=== PATIENT | male | born 1950 | race Caucasian/White ===

== ENCOUNTER → 2016-10-04 | Outpatient (CLI) | payer OTHER | LOC: M RAD 14:06 | PROVIDERS: ATTEND Otolaryngology | DX: J30.9 Allergic rhinitis, unspecified (principal); J32.4 Chronic pansinusitis; J34.2 Deviated nasal septum; M27.40 Unspecified cyst of jaw ==

== ENCOUNTER 2017-02-23 07:28 | Day surgery (SDC) | payer OTHER ==
[~2017-02-23] VITALS: Ht 185.4 cm; Wt 108.9 kg
[~2017-02-23 07:28] MED LIST: ACETAMINOPHEN 325 MG TAB PO PRN; AMLO5TAB2 PO; ASPI1TAB15 PO; CARV25TA PO; INCR1INH INH; LISINOP/HCTZ PO; OFLOXACIN 0.3 % (OCUFLOX) OPTH SOL 5ML OS ONE; PHENYLEPHRINE 2.5% OPHTH SOL 2ML OS ONE; PROPARACAINE 0.5% OPHTH SOL 15ML OS ONE; PROPARACAINE 0.5% OPHTH SOL 15ML OS PRN; ROSU10TA2 PO; TROPICAMIDE 1% OPHTH SOLN 2ML OS ONE
[2017-02-23] MEDS ORDERED: ALBUTEROL SULFATE 2.5 MG/0.5 ML INH NEB SOLN As Ordered ONE (08:46)
[2017-02-23] MEDS ORDERED: LIDOCAINE 0.75%/EPINEPHRINE 0.025% IN BSS 1ML SYR INTRACAMERAL (OR ONLY) As Ordered ONE (09:00)
[2017-02-23] MEDS ORDERED: ACETYLCHOLINE OPHTH SOLN 1% 2ML (MIOCHOL-E) As Ordered ONE (09:00)
[2017-02-23] MEDS ORDERED: BALANCED SALT IRRIGATION SOLUTION 500ML BAG (FOR OR EYE MACHINE) As Ordered ONE (09:00)
[2017-02-23] MEDS ORDERED: POVIDONE-IODINE 5% OPHTH PREP SOL 30ML As Ordered ONE (09:00)
[2017-02-23] MEDS ORDERED: CEFUROXIME 1MG/0.1ML INTRACAMERAL INJ As Ordered ONE (09:00)
[2017-02-23] MEDS ORDERED: ALBUTEROL SULFATE 2.5 MG/0.5 ML INH NEB SOLN INH ONE (09:00)
[2017-02-23] MEDS ORDERED: DUOVISC (0.50ML VISCOAT/0.55ML PROVISC) OPHTH KIT As Ordered ONE (09:01)
[2017-02-23] MEDS ORDERED: MIDAZOLAM INJ 2 MG/2 ML VIAL (J2250) As Ordered ONE (09:04)
[2017-02-23] MEDS ORDERED: fentaNYL 100 MCG/2 ML INJECTION (J3010) As Ordered ONE (09:04)
[2017-02-23 10:10] VITALS: BP 123/73
[2017-02-23] MEDS ORDERED: TRIMETHOBENZAMIDE 300 MG CAP PO PRN (10:30)
--- NOTE | 2017-02-25 10:50 | RO ---
DATE OF PROCEDURE: 02/23/2017 PREOPERATIVE DIAGNOSIS: Visually significant nuclear sclerotic cataract left eye. POSTOPERATIVE DIAGNOSIS: Visually significant nuclear sclerotic cataract left eye. PROCEDURE: Cataract extraction with use of phacoemulsification and placement of intraocular lens, AU00T0, 22.5, left eye. SURGEON: Noam Dominguez DO COIL TESTER: ANESTHESIA: Local with monitored anesthesia care (MAC). COMPLICATIONS: None. POSTOPERATIVE CONDITION: Stable. INDICATION FOR SURGERY: Blurred vision left eye affecting patient's activities of daily living. DESCRIPTION OF PROCEDURE: The patient was seen in the preoperative area and properly identified. The correct operative eye was identified and marked. Attention was turned to that eye. The patient received topical antibiotics in the preoperative area. The patient then received topical dilating drops consisting of tropicamide and phenylephrine. The patient was then transferred to the operating room. The correct side was re-identified. The patient received topical anesthetics and antibiotics on the surface of the eye. The eye was prepped and draped in a sterile fashion. The upper and lower eyelids were isolated with Tegaderm tape, and the lids were held open with an adjustable speculum. Using a sideport blade, a paracentesis incision was made. Intraocular preservative-free lidocaine was then injected into the anterior chamber. Viscoelastic was then injected into the anterior chamber through the paracentesis. Using a 2.4 mm sharp-tipped keratome, the anterior chamber was entered via a temporal clear corneal incision. A continuous curvilinear capsulorrhexis was created with the aid of a 26-gauge cystotome and Utrata forceps. Hydrodissection was performed with balanced salt solution (BSS) on a blunt cannula until the nucleus was freely mobile. The crystalline lens was phacoemulsified and aspirated. Additional cohesive viscoelastic was placed into the capsular bag to deepen it. A AU00T0, 22.5 lens was placed into the capsular bag and confirmed by visualizing the continuous curvilinear capsulorrhexis. Additional irrigation and aspiration was used to remove cortical material and remaining viscoelastic. The clear corneal incision was hydrated with BSS on a blunt cannula. The lens was well positioned. The incisions were then tested for leaks and found to be negative. The eye was then palpated for appropriate pressure and adjusted accordingly with BSS. The eyelid speculum was carefully removed. A shield was placed. The patient tolerated the procedure well and was discharged to the recovery unit in a stable condition. MTDD
== END 2017-02-23 10:15 | disposition home or self-care (01) ==
LOC: M SDC 07:28
PROVIDERS: ATTEND Ophthalmology
DX: H25.12 Age-related nuclear cataract, left eye (principal); Z98.61 Coronary angioplasty status; Z79.82 Long term (current) use of aspirin; I10 Essential (primary) hypertension; E78.5 Hyperlipidemia, unspecified; J44.9 Chronic obstructive pulmonary disease, unspecified; Z79.899 Other long term (current) drug therapy
CPT/HCPCS: 66984; J2250; J3010; V2632

== ENCOUNTER 2017-07-19 09:42 | Day surgery (SDC) | payer OTHER ==
[2017-07-19] MEDS ORDERED: ROCURONIUM BROMIDE 50 MG/5 ML VIAL As Ordered (10:59)
[2017-07-19] MEDS ORDERED: PROPOFOL 200 MG/20 ML VIAL As Ordered (10:59)
[2017-07-19] MEDS ORDERED: LIDOCAINE 2% INJ 100 MG/5 ML SDV (FOR ANES.) As Ordered (10:59)
[2017-07-19] MEDS ORDERED: fentaNYL 100 MCG/2 ML INJECTION (J3010) As Ordered (11:00)
[2017-07-19] MEDS ORDERED: MIDAZOLAM INJ 2 MG/2 ML VIAL (J2250) As Ordered (11:00)
[2017-07-19] MEDS: LR 1,000 ML IV (11:00)
[2017-07-19] MEDS: CARVedilol 12.5 MG TAB PO (11:02)
[2017-07-19] MEDS ORDERED: ePHEDrine SULFATE 25 MG/5 ML(5MG/ML) SYRINGE As Ordered (11:59)
[2017-07-19] MEDS ORDERED: PHENYLephrine HCL 500 MCG/5 ML (100MCG/ML) SYRINGE (J2370) As Ordered ×2 (12:00→12:22)
[2017-07-19] MEDS ORDERED: ONDANSETRON 4MG/2ML VIAL (J2405) As Ordered (12:02)
[2017-07-19] MEDS ORDERED: dexameTHASONE 4 MG/ML 1ML VIAL (J1100) As Ordered ×2 (12:02)
[2017-07-19] MEDS: LIDOCAINE W/EPINEPHRINE 1% 20ML VIAL As Ordered (12:15)
[2017-07-19] MEDS: EPINEPHrine 1MG/ML INJ 30ML MD-VIAL As Ordered (12:15)
[2017-07-19] MEDS ORDERED: GLYCOPYRROLATE INJ 0.2 MG/ML 2 ML VIAL As Ordered ×2 (13:06)
[2017-07-19] MEDS ORDERED: LR 1,000 ML IV ×2 (13:45)
[2017-07-19] MEDS ORDERED: METOCLOPRAMIDE INJ 10MG/2ML VIAL (J2765) IV (13:45)
[2017-07-19] MEDS ORDERED: MEPERIDINE INJ 25 MG/ML VIAL (J2175) IV (13:45)
[2017-07-19] MEDS ORDERED: ONDANSETRON 4MG/2ML VIAL (J2405) IV (13:45)
[2017-07-19] MEDS ORDERED: fentaNYL 100 MCG/2 ML INJECTION (J3010) IV (13:45)
[2017-07-19] MEDS ORDERED: ACETAMINOPH W/CODEINE #3 TAB UD PO (13:45)
[2017-07-19] MEDS: PERCOCET 5MG/325MG TAB PO ×2 (13:55→14:14)
== END 2017-07-19 15:25 | disposition home or self-care (01) ==
LOC: M SDC 09:42
DX: J34.2 Deviated nasal septum (principal); J31.0 Chronic rhinitis; I10 Essential (primary) hypertension; E78.00 Pure hypercholesterolemia, unspecified; J44.9 Chronic obstructive pulmonary disease, unspecified; Q24.9 Congenital malformation of heart, unspecified; I42.0 Dilated cardiomyopathy; Z79.899 Other long term (current) drug therapy; Z79.82 Long term (current) use of aspirin; Z95.5 Presence of coronary angioplasty implant and graft; Z96.1 Presence of intraocular lens; Z87.891 Personal history of nicotine dependence; Z98.61 Coronary angioplasty status
CPT/HCPCS: 30520

== ENCOUNTER → 2018-08-01 | Outpatient (CLI) | payer OTHER ==
[~2018-08-01] MED LIST changes: -ACETAMINOPHEN 325 MG TAB PO PRN; -AMLO5TAB2 PO; +AMLO5TAB6 PO; +MULT1TAB10 PO; -OFLOXACIN 0.3 % (OCUFLOX) OPTH SOL 5ML OS ONE; -PHENYLEPHRINE 2.5% OPHTH SOL 2ML OS ONE; -PROPARACAINE 0.5% OPHTH SOL 15ML OS ONE; -PROPARACAINE 0.5% OPHTH SOL 15ML OS PRN; -ROSU10TA2 PO; +ROSU10TA5 PO; +SUPETAB25 PO; -TROPICAMIDE 1% OPHTH SOLN 2ML OS ONE
--- NOTE | 2018-08-01 11:52 | REP ---
LUMBAR SPINE, FIVE VIEWS: HISTORY: Back pain. There is no acute fracture or subluxation. The lumbar intervertebral discs are decreased in height. Vacuum phenomenon is present at the L5-S1 level. These findings are consistent with disc degeneration. Osteophytes are present on L1, L2, L5, and S1. There is narrowing of the right L4-5 and L5-S1 facet joints and left L3-4 through L5-S1 facet joints. IMPRESSION: Degenerative change as described above. Electronically Signed by Finesse Berumen MD 08/01/2018 11:59 A
== END ==
LOC: M WUC 11:02
PROVIDERS: ATTEND Physician Assistant
DX: M54.5 Low back pain (principal)

== ENCOUNTER → 2018-09-17 | Outpatient (CLI) | payer MEDICARE ==
--- NOTE | 2018-09-17 13:02 | REP ---
MR LUMBAR SPINE WITHOUT CONTRAST: HISTORY: Spondylosis. Decreased signal intensity on T2-weighted images is present in the lumbar intervertebral discs. The discs are decreased in height. These findings are consistent with disc degeneration. A disc bulge is present at the T12-L1 level. There is minimal effacement of the thecal sac without spinal cord compression. The T12 neural foramina are patent on sagittal images. A disc bulge is present at the L1-2 level. There is minimal compression of the thecal sac. There is hypertrophy of the posterior articulating facets. The L1 nerves exit the neural foramina without compression. A diffuse disc bulge and small left paracentral disc protrusion are present at the L2-3 level. There is an increase in the amount of epidural fat. There is hypertrophy of the ligamenta flava and posterior articulating facets. These findings produce moderate central canal stenosis. The L2 nerves exit the neural foramina without compression. A diffuse disc bulge is present at the L3-4 level. There is an increase in the amount of epidural fat. There is hypertrophy of the ligamenta flava and posterior articulating facets. There is moderate compression of the thecal sac. The L3 nerves exit the neural foramina without compression. A diffuse disc bulge is present at the L4-5 level. There is an increase in the amount of epidural fat. There is hypertrophy of the ligamenta flava and posterior articulating facets. There is minimal compression the thecal sac. The L4 nerves exit the neural foramina without compression. A diffuse disc bulge is present at the L5-S1 level. There is minimal compression of the thecal sac. There is hypertrophy of the posterior articulating facets. The L5 nerves exit the neural foramina without compression. The conus medullaris is normal in appearance terminating at the level of the T12-L1 intervertebral disc. Increased signal intensity on T2-weighted images is present in the endplates of the L5 and S1 vertebral bodies. This represents degenerative change. IMPRESSION: 1. Diffuse disc bulges at the L1-2 and L5-S1 levels with minimal thecal sac compression. 2. Moderate central canal stenosis at the L2-3 level secondary to disc bulge, disc protrusion, ligamentous, and facet hypertrophy and epidural lipomatosis. 3. Diffuse disc bulge, ligamentous and facet hypertrophy and epidural lipomatosis with moderate thecal sac compression. 4. Diffuse disc bulge, ligamentous and facet hypertrophy and epidural lipomatosis at the L4-5 level with minimal thecal sac compression. Electronically Signed by Finesse Berumen MD 09/17/2018 01:21 P
== END ==
LOC: M RAD 11:17
PROVIDERS: ATTEND Orthopaedic Surgery
DX: M47.26 Other spondylosis with radiculopathy, lumbar region (principal); M51.26 Other intervertebral disc displacement, lumbar region; M48.061 Spinal stenosis, lumbar region without neurogenic claudication

== ENCOUNTER → 2019-04-16 | Outpatient (CLI) | payer MEDICARE ==
[~2019-04-16] MED LIST changes: -ROSU10TA5 PO; +ROSU10TA6 PO
[2019-04-16 13:42] LABS: FOLATE > 24.0 NG/ML (>5.4); FREE T4 0.89 NG/DL (0.76-1.46); TOTAL PROTEIN 6.7 GM/DL (6.4-8.2); VITAMIN B12 LEVEL 417 PG/ML (247-911)
[2019-04-16 14:20] LABS: HEMOGLOBIN A1c 6.3 %
== END ==
LOC: M WUC 09:15
PROVIDERS: ATTEND Psychiatry & Neurology Neurology
DX: E11.9 Type 2 diabetes mellitus without complications (principal); E07.9 Disorder of thyroid, unspecified

== ENCOUNTER → 2019-07-04 | Outpatient (REF) | payer MEDICARE ==
[2019-07-04 11:59] LABS: PLATELET COUNT, AUTOMATED 237 10^3/uL (150-450)
[2019-07-04 12:10] LABS: INR 1.01
[2019-07-04 12:11] LABS: PARTIAL THROMBOPLASTIN TIME 30.8 SECONDS (25.0-38.4)
[2019-07-04 12:23] LABS: COLLAGEN EPINEPHRINE 124 SECONDS (74-162)
== END ==
LOC: M LABDRAW1 11:21
PROVIDERS: ATTEND Physician Assistant
DX: D69.1 Qualitative platelet defects (principal); Z01.812 Encounter for preprocedural laboratory examination; M47.27 Other spondylosis with radiculopathy, lumbosacral region

== ENCOUNTER → 2019-09-24 | Outpatient (CLI) | payer MEDICARE | LOC: M LABSMTC 09:25 | PROVIDERS: ATTEND Physical Medicine & Rehabilitation | DX: Z03.818 Encounter for observation for suspected exposure to other biological agents ruled out (principal) ==

== ENCOUNTER → 2019-12-25 | Outpatient (CLI) | payer MEDICARE ==
[~2019-12-25] MED LIST changes: +AMLO1TAB24 PO; -AMLO5TAB6 PO; +ASPI-546 PO; -ASPI1TAB15 PO
== END ==
LOC: M LABSMTC 12:29
PROVIDERS: ATTEND Physical Medicine & Rehabilitation
DX: Z11.59 Encounter for screening for other viral diseases (principal)

== ENCOUNTER → 2020-01-28 | Outpatient (CLI) | payer MEDICARE | LOC: M RAD 16:03 | PROVIDERS: ATTEND Physician Assistant | DX: Z53.9 Procedure and treatment not carried out, unspecified reason (principal); M47.27 Other spondylosis with radiculopathy, lumbosacral region ==

== ENCOUNTER → 2020-04-02 | Outpatient (CLI) | payer MEDICARE ==
[~2020-04-02] MED LIST changes: +DULO1CAP4 PO; +LIPI20TA PO; +POTA10TA16 PO; +ROPI0.253 PO; +TORS10TA3 PO; +VENTAER INH
== END ==
LOC: M LABSMTC 09:35
PROVIDERS: ATTEND Physical Medicine & Rehabilitation
DX: Z53.9 Procedure and treatment not carried out, unspecified reason (principal)

== ENCOUNTER → 2020-04-02 | Outpatient (CLI) | payer MEDICARE | LOC: M LABSMTC 15:11 | PROVIDERS: ATTEND Physical Medicine & Rehabilitation | DX: Z20.828 Contact with and (suspected) exposure to other viral communicable diseases (principal) ==

== ENCOUNTER → 2020-04-07 | Outpatient (CLI) | payer MEDICARE ==
--- NOTE | 2020-04-07 11:50 | REPVR ---
PROCEDURE INFORMATION: Exam: MR Lumbar Spine Without Contrast. Exam date and time: 04/07/2020 11:05 AM Age: 69 years old Clinical indication: Pain; Lumbago with sciatica; Bilateral; Additional info: Spinal stenosis sedation mri TECHNIQUE: Imaging protocol: Multiplanar magnetic resonance images of the lumbar spine without intravenous contrast. COMPARISON: MRI-Spine, L.S. without con 09/17/2018 12:12 PM FINDINGS: Vertebrae: There is no fracture or listhesis. Normal vertebral body alignment and heights are preserved. There is severe intervertebral disc space loss at L5/S1. Spinal cord: Normal signal. No cord compression. L1-L2: There is shallow disc bulging. There is mild facet and ligamentous hypertrophy. There is mild left neural foraminal narrowing. L2-L3: There is diffuse disc bulging with a large left paracentral/subarticular protrusion/superior extrusion. This compresses the thecal sac and effaces the left lateral recess, with potential compromise of both the exiting L2 nerve root as well as the left L3 nerve root within the lateral recess. There is moderate to severe facet and ligamentous hypertrophy. Trace fluid is noted within the facet joints. There is severe canal stenosis. There is mild bilateral neural foraminal narrowing. L3-L4: There is shallow disc bulging. There is moderate facet hypertrophy. There is mild canal stenosis. There is mild right neural foraminal narrowing. L4-L5: There is diffuse disc bulging. There is mild facet hypertrophy. There is mild canal stenosis, with a residual diameter of 10 mm. There is mild bilateral neural foraminal narrowing. L5-S1: There is shallow disc bulging. There is mild facet hypertrophy. The spinal canal and neural foramina are patent. Soft tissues: Unremarkable. IMPRESSION: Degenerative disc disease and spondylosis. At L2/3, left paracentral/subarticular protrusion/superior extrusion results in potential compromise of both the left L2 and L3 nerve roots. Electronically signed by: Sosa Parr On 04/07/2020 11:50:07 AM
== END ==
LOC: M RAD 10:14
PROVIDERS: ATTEND Physical Medicine & Rehabilitation
DX: M48.061 Spinal stenosis, lumbar region without neurogenic claudication (principal); M51.26 Other intervertebral disc displacement, lumbar region; M51.27 Other intervertebral disc displacement, lumbosacral region

== ENCOUNTER → 2021-01-06 | Outpatient (CLI) | payer MEDICARE ==
[~2021-01-06] MED LIST changes: +LISI20TA20 OR; +MULT-90 PO; +SUPETAB44 PO
== END ==
LOC: M LABSMTC 10:47
PROVIDERS: ATTEND Anesthesiology
DX: Z01.812 Encounter for preprocedural laboratory examination (principal); Z20.822 Contact with and (suspected) exposure to COVID-19

== ENCOUNTER 2021-01-08 08:42 | Day surgery (SDC) | payer MEDICARE ==
[~2021-01-08] VITALS: Ht 182.9 cm; Wt 114.9 kg
[~2021-01-08 08:42] MED LIST changes: +BSS IRR 500ML/OMIDRIA 4ML IRR BAG (OR ONLY) As Ordered ONE; +DUOVISC (0.50ML VISCOAT/0.85ML PROVISC) OPHTH KIT As Ordered ONE; +LIDOCAINE 1% SDV 5ML VIAL As Ordered ONE; +MOXIFLOXACIN 0.8MG 0.8ML INTRAOCULAR SYRINGE As Ordered ONE; +PROPARACAINE 0.5% OPHTH SOL 15ML OD ONE
[2021-01-08] MEDS: OFLOXACIN 0.3 % (OCUFLOX) OPTH SOL 5ML OD SCH ×3 (09:28→09:41)
[2021-01-08] MEDS: PHENYLEPHRINE 2.5% OPHTH SOL 2ML OD SCH ×3 (09:28→09:41)
[2021-01-08] MEDS: TROPICAMIDE 1% OPHTH SOLN 2ML OD SCH ×3 (09:28→09:41)
[2021-01-08] MEDS ORDERED: PHENYLEPHRINE 1.5%/LIDOCAINE 1% INTRAOCULAR 0.8ML SYRINGE As Ordered ONE (10:59)
[2021-01-08] MEDS ORDERED: POVIDONE-IODINE 5% OPHTH PREP SOL 30ML As Ordered ONE (11:00)
[2021-01-08] MEDS ORDERED: fentaNYL 100 MCG/2 ML INJECTION (J3010) As Ordered ONE (11:03)
[2021-01-08] MEDS ORDERED: MIDAZOLAM INJ 2MG/2ML VIAL (J2250 PER 1MG) As Ordered ONE (11:03)
[2021-01-08] MEDS ORDERED: propofoL 200 MG/20 ML VIAL As Ordered ONE (11:03)
[2021-01-08 11:21] VITALS: BP 150/77
--- NOTE | 2021-01-12 15:50 | RO ---
OPERATIVE NOTE DATE OF OPERATION: 01/08/2021 PREOPERATIVE DIAGNOSIS: Mature cataract right eye. POSTOPERATIVE DIAGNOSIS: Mature cataract right eye. PROCEDURE: Phacoemulsification, cataract extraction, implantation intraocular lens right eye. SURGEON: Randell Coles MD ELECTROMAGNET CRANE OPERATOR: COMPLICATIONS: None. ESTIMATED BLOOD LOSS: LENS: [employer] Model SN60AT, power 21.5 diopters, [employer] 6.59 CDE. ANESTHESIA: MAC and topical. INDICATIONS FOR PROCEDURE: The patient presented to the office with decreased vision associated with cataract and this was confirmed with slit lamp. Informed consent was obtained for cataract surgery of the right eye and implant of intraocular lens. DESCRIPTION OF PROCEDURE: Prior to the operating room the patient was identified, the right eye was marked. He was wheeled supine to the OR suite, positioned on stretcher. Anesthesia was initiated. Topical Tetracaine was placed in both eyes. He was prepped and draped with 5% Povidone iodine to lids, lashes and face. Lashes taped with Tegaderm. Speculum was placed in the right eye. 1 mm side port was made at the 11:30 position.1% preservative-free Lidocaine was injected. Viscoat was injected. A 2.6 mm step groove clear corneal incision was made temporally. A bent cystitome, needle and Utrata forceps fashioned a continuous curvilinear capsulorrhexis. BSS was used to hydrodissect, the lens was found to rotate freely, it was phacoemulsified using [id number] technique. Residual cortex was removed with I/A. Provisc was injected to expand the capsular bag. The lens was injected and positioned using Chacho hook. Residual viscoelastic was removed with the I/A. BSS was used to hydrate the clear corneal wound. Antibiotic prophylaxis was injected. The speculum was removed, shield was taped over the eye. The patient was taken in excellent condition to recovery room.
== END 2021-01-08 12:00 | disposition home or self-care (01) ==
LOC: M SDC 08:42
PROVIDERS: ATTEND Ophthalmology
DX: H25.11 Age-related nuclear cataract, right eye (principal); I11.9 Hypertensive heart disease without heart failure; I50.9 Heart failure, unspecified; J44.9 Chronic obstructive pulmonary disease, unspecified; Z98.61 Coronary angioplasty status; Z79.82 Long term (current) use of aspirin; Z79.899 Other long term (current) drug therapy; Z88.8 Allergy status to other drugs, medicaments and biological substances; Z79.51 Long term (current) use of inhaled steroids
CPT/HCPCS: 66984; J1097; J2250; J2280; J3010; V2632

== ENCOUNTER 2021-06-17 19:14 | Emergency (ER) | payer MEDICARE ==
[~2021-06-17] VITALS: Ht 182.9 cm; Wt 113.6 kg
[~2021-06-17 19:14] MED LIST changes: -BSS IRR 500ML/OMIDRIA 4ML IRR BAG (OR ONLY) As Ordered ONE; -DUOVISC (0.50ML VISCOAT/0.85ML PROVISC) OPHTH KIT As Ordered ONE; -LIDOCAINE 1% SDV 5ML VIAL As Ordered ONE; -LISI20TA20 OR; +LISI20TA37 OR; -MOXIFLOXACIN 0.8MG 0.8ML INTRAOCULAR SYRINGE As Ordered ONE; +POTA-149 PO; -POTA10TA16 PO; -PROPARACAINE 0.5% OPHTH SOL 15ML OD ONE
[2021-06-17 19:18] VITALS: BP 160/78
[2021-06-17] MEDS ORDERED: BOOSTRIX/ADACEL VACCINE (DIPHTH/PERTUSS/ACELL/TETANUS) 0.5ML SYR IM ONE (20:25)
[2021-06-17] MEDS ORDERED: BACITRACIN OINTMENT 30GM TUBE TOP ONE (20:30)
[2021-06-17] MEDS ORDERED: ACETAMINOPHEN TAB 650MG DOSE (2X325MG) PO ONE (20:50)
== END 2021-06-17 21:02 | disposition home or self-care (01) ==
LOC: M ED 19:14
DX: S09.90XA Unspecified injury of head, initial encounter (principal); W00.9XXA Unspecified fall due to ice and snow, initial encounter; Y92.099 Unspecified place in other non-institutional residence as the place of occurrence of the external cause; Y93.9 Activity, unspecified; Y99.9 Unspecified external cause status; J01.00 Acute maxillary sinusitis, unspecified; M50.30 Other cervical disc degeneration, unspecified cervical region; I25.2 Old myocardial infarction; Z79.82 Long term (current) use of aspirin; Z79.899 Other long term (current) drug therapy; Z88.8 Allergy status to other drugs, medicaments and biological substances

== ENCOUNTER → 2022-03-23 | Outpatient (CLI) | payer MEDICARE ==
[2022-03-23 16:24] LABS: BASO % 0.4 % (0.0-1.0); EOS # 0.3 10^3/uL (0.0-0.5); EOS % 3.7 % (0.0-3.0); HEMOGLOBIN 12.6 g/dl (13.5-17.5); LYMPH # 1.6 10^3/uL (1.5-5.0); LYMPH % 23.3 % (24.0-44.0); MEAN CORPUSCULAR HEMOGLOBIN 32.9 pg (27.0-33.0); MEAN CORPUSCULAR HGB CONC 32.3 g/dl (32.0-36.5); MEAN CORPUSCULAR VOLUME 101.8 fl (80.0-96.0); MONO # 0.8 10^3/uL (0.0-0.8); MONO % 12.6 % (2.0-8.0); NEUTROPHILS % 59.4 % (36.0-66.0); PLATELET COUNT, AUTOMATED 257 10^3/uL (150-450); RED BLOOD COUNT 3.83 10^6/uL (4.30-6.10); WHITE BLOOD COUNT 6.7 10^3/uL (4.0-10.0)
[2022-03-23 17:06] LABS: ALBUMIN 3.8 G/DL (3.2-5.2); ALKALINE PHOSPHATASE 94 U/L (46-116); ALT/SGPT 48 U/L (7.0-40); AST/SGOT 35 U/L (<34); BILIRUBIN,TOTAL 0.4 MG/DL (0.3-1.2); BLOOD UREA NITROGEN 13 MG/DL (9-23); CALCIUM LEVEL 9.5 MG/DL (8.3-10.6); CARBON DIOXIDE LEVEL 33 MMOL/L (20-31); CHLORIDE LEVEL 100 MMOL/L (98-107); CHOLESTEROL LEVEL 117 MG/DL (<200); CHOLESTEROL RISK RATIO 3.55 (<5); CREATININE FOR GFR 0.96 MG/DL (0.70-1.30); GLOMERULAR FILTRATION RATE > 60.0 (>42); GLUCOSE, FASTING 118 MG/DL (74-106); HDL CHOLESTEROL 32.9 MG/DL (>40); LDL CHOLESTEROL 30.9 MG/DL (<100); NON-HDL-C 84 MG/DL; POTASSIUM SERUM 3.9 MMOL/L (3.5-5.1); PROSTATIC SPECIFIC AG MONITOR 0.57 NG/ML (< 4.00); SODIUM LEVEL 140 MMOL/L (136-145); TOTAL PROTEIN 6.5 G/DL (5.7-8.2); TRIGLYCERIDES LEVEL 266 MG/DL (<150)
[2022-03-23 17:07] LABS: THYROID STIMULATING HORMONE 1.139 uIU/ML (0.55-4.78)
== END ==
LOC: M WUC 11:15
PROVIDERS: ATTEND Physician Assistant
DX: E78.5 Hyperlipidemia, unspecified (principal); I10 Essential (primary) hypertension; Z12.5 Encounter for screening for malignant neoplasm of prostate; R97.20 Elevated prostate specific antigen [PSA]

== ENCOUNTER → 2022-09-23 | Outpatient (CLI) | payer MEDICARE ==
[2022-09-23 14:20] LABS: ALKALINE PHOSPHATASE 85 U/L (46-116); ALT/SGPT 41 U/L (7.0-40); AST/SGOT 32 U/L (<34); BILIRUBIN,TOTAL 0.3 MG/DL (0.3-1.2); BLOOD UREA NITROGEN 18 MG/DL (9-23); CALCIUM LEVEL 9.2 MG/DL (8.3-10.6); CARBON DIOXIDE LEVEL 33 MMOL/L (20-31); CHLORIDE LEVEL 98 MMOL/L (98-107); CHOLESTEROL LEVEL 127 MG/DL (<200); CHOLESTEROL RISK RATIO 3.44 (<5); GLOMERULAR FILTRATION RATE > 60.0 (>42); GLUCOSE, FASTING 124 MG/DL (74-106); HDL CHOLESTEROL 36.9 MG/DL (>40); LDL CHOLESTEROL 50.7 MG/DL (<100); NON-HDL-C 90.1 MG/DL; POTASSIUM SERUM 4.1 MMOL/L (3.5-5.1); SODIUM LEVEL 137 MMOL/L (136-145); TOTAL PROTEIN 6.7 G/DL (5.7-8.2); TRIGLYCERIDES LEVEL 197 MG/DL (<150)
== END ==
LOC: M WUC 10:26
PROVIDERS: ATTEND Physician Assistant
DX: E78.5 Hyperlipidemia, unspecified (principal); I10 Essential (primary) hypertension; M16.12 Unilateral primary osteoarthritis, left hip

== ENCOUNTER → 2022-12-30 | Outpatient (CLI) | payer MEDICARE ==
[~2022-12-30] MED LIST changes: -ROPI0.253 PO; +ROPI5TAB19 PO
[2022-12-30 15:10] LABS: BASO % 0.4 % (0.0-1.0); EOS # 0.2 10^3/uL (0.0-0.5); EOS % 2.2 % (0.0-3.0); HEMATOCRIT 36.9 % (42.0-52.0); HEMOGLOBIN 12.2 g/dl (13.5-17.5); LYMPH # 1.6 10^3/uL (1.5-5.0); LYMPH % 21.8 % (24.0-44.0); MEAN CORPUSCULAR HEMOGLOBIN 33.1 pg (27.0-33.0); MEAN CORPUSCULAR HGB CONC 33.1 g/dl (32.0-36.5); MONO # 0.8 10^3/uL (0.0-0.8); MONO % 11.1 % (2.0-8.0); NEUTROPHILS # 4.6 10^3/uL (1.5-8.5); NEUTROPHILS % 63.9 % (36.0-66.0); PLATELET COUNT, AUTOMATED 273 10^3/uL (150-450); RED BLOOD COUNT 3.69 10^6/uL (4.30-6.10); WHITE BLOOD COUNT 7.2 10^3/uL (4.0-10.0)
[2022-12-30 15:36] LABS: ALBUMIN 3.9 G/DL (3.2-5.2)
[2022-12-30 15:44] LABS: FERRITIN 116.1 NG/ML (10.5-307.3); PERCENT SATURATION 22.1 % (19.7-50.0)
== END ==
LOC: M WUC 11:36
PROVIDERS: ATTEND Orthopaedic Surgery
DX: M25.552 Pain in left hip (principal); M16.9 Osteoarthritis of hip, unspecified

== ENCOUNTER → 2023-04-14 | Outpatient (CLI) | payer MEDICARE ==
[2023-04-14 12:58] LABS: APPEARANCE, URINE CLEAR (CLEAR); BACTERIA, URINE AUTO NEGATIVE (NEGATIVE); BILIRUBIN, URINE AUTO NEGATIVE (NEGATIVE); BLOOD, URINE BLOOD NEGATIVE (NEGATIVE); COLOR, URINE STRAW (YELLOW); GLUCOSE, URINE (UA) AUTO NEGATIVE (NEGATIVE); KETONE, URINE AUTO NEGATIVE (NEGATIVE); LEUKOCYTE ESTERASE, URINE AUTO NEGATIVE (NEGATIVE); MUCUS, URINE SMALL (NEGATIVE); NITRITE, URINE AUTO NEGATIVE (NEGATIVE); PROTEIN, URINE AUTO NEGATIVE (NEGATIVE); RBC, URINE AUTO 0 /HPF (0-3); SPECIFIC GRAVITY URINE AUTO 1.005 (1.002-1.035); SQUAMOUS EPITHELIAL CELL UR AU 0 /HPF (0-6); UROBILINOGEN, URINE AUTO 0.2 mg/dL (0.0-2.0); WBC, URINE AUTO 0 /HPF (0-3)
[2023-04-14 13:00] LABS: HEMATOCRIT 38.8 % (42.0-52.0); HEMOGLOBIN 12.8 g/dl (13.5-17.5); MEAN CORPUSCULAR HEMOGLOBIN 32.3 pg (27.0-33.0); PLATELET COUNT, AUTOMATED 238 10^3/uL (150-450); RED BLOOD COUNT 3.96 10^6/uL (4.30-6.10); WHITE BLOOD COUNT 7.4 10^3/uL (4.0-10.0)
[2023-04-14 13:24] LABS: PROSTATIC SPECIFIC AG MONITOR 0.72 NG/ML (< 4.00)
[2023-04-14 13:26] LABS: ALBUMIN 3.9 G/DL (3.2-5.2); ALKALINE PHOSPHATASE 89 U/L (46-116); ALT/SGPT 36 U/L (7.0-40); AST/SGOT 25 U/L (<34); BILIRUBIN,TOTAL 0.4 MG/DL (0.3-1.2); BLOOD UREA NITROGEN 15 MG/DL (9-23); CALCIUM LEVEL 8.8 MG/DL (8.3-10.6); CARBON DIOXIDE LEVEL 32 MMOL/L (20-31); CHLORIDE LEVEL 102 MMOL/L (98-107); CHOLESTEROL LEVEL 125 MG/DL (<200); CHOLESTEROL RISK RATIO 3.59 (<5); CREATININE FOR GFR 0.75 MG/DL (0.70-1.30); GLOMERULAR FILTRATION RATE > 60.0 (>42); GLUCOSE, FASTING 102 MG/DL (74-106); HDL CHOLESTEROL 34.8 MG/DL (>40); LDL CHOLESTEROL 54.4 MG/DL (<100); NON-HDL-C 90.2 MG/DL; POTASSIUM SERUM 3.7 MMOL/L (3.5-5.1); SODIUM LEVEL 139 MMOL/L (136-145); TOTAL PROTEIN 6.5 G/DL (5.7-8.2); TRIGLYCERIDES LEVEL 179 MG/DL (<150)
[2023-04-14 14:10] LABS: HEMOGLOBIN A1c 5.8 % (4.0-6.0)
== END ==
LOC: M WUC 10:43
PROVIDERS: ATTEND Physician Assistant
DX: I25.10 Atherosclerotic heart disease of native coronary artery without angina pectoris (principal); I10 Essential (primary) hypertension; R73.01 Impaired fasting glucose; J44.9 Chronic obstructive pulmonary disease, unspecified; Z12.5 Encounter for screening for malignant neoplasm of prostate; R35.1 Nocturia; I25.2 Old myocardial infarction

== ENCOUNTER → 2024-10-17 | Outpatient (CLI) | payer MEDICARE ==
[~2024-10-17] MED LIST changes: -ROSU10TA6 PO; +ROSU10TA61 PO
[2024-10-17 14:53] LABS: PLATELET COUNT, AUTOMATED 241 10^3/uL (150-450)
[2024-10-17 15:20] LABS: ALT/SGPT 47 U/L (7.0-40); AST/SGOT 38 U/L (<34); CALCIUM LEVEL 9.1 MG/DL (8.3-10.6); CARBON DIOXIDE LEVEL 28 MMOL/L (20-31); CHLORIDE LEVEL 101 MMOL/L (98-107); CHOLESTEROL LEVEL 109 MG/DL (<200); CHOLESTEROL RISK RATIO 3.26 (<5); CREATININE FOR GFR 0.88 MG/DL (0.70-1.30); GLOMERULAR FILTRATION RATE > 90.0 (>42); LDL CHOLESTEROL 42.8 MG/DL (<100); NON-HDL-C 75.6 MG/DL; POTASSIUM SERUM 3.8 MMOL/L (3.5-5.1); SODIUM LEVEL 141 MMOL/L (136-145); TRIGLYCERIDES LEVEL 164 MG/DL (<150)
== END ==
LOC: M WUC 11:03
PROVIDERS: ATTEND Physician Assistant
DX: I10 Essential (primary) hypertension (principal); E78.5 Hyperlipidemia, unspecified; I25.2 Old myocardial infarction; E78.2 Mixed hyperlipidemia

== ENCOUNTER 2024-11-14 07:47 | Day surgery (SDC) | payer MEDICARE ==
[~2024-11-14] VITALS: Ht 182.9 cm; Wt 104.6 kg
[~2024-11-14 07:47] MED LIST changes: +FLUT1BLS8; +LIDOCAINE 2% 100 MG/5 ML SDV (FOR ANES.) As Ordered ONE; -LISI20TA37 OR; +LISI20TA37 PO; +POTA10CA70 PO; +ROPI1TAB73 PO
[2024-11-14 09:49] VITALS: TEMP 96.8
[2024-11-14 10:05] VITALS: BP 130/73; O2SAT 96
== END 2024-11-14 10:13 | disposition home or self-care (01) ==
LOC: M OPP 07:47
PROVIDERS: ATTEND Surgery
DX: Z12.11 Encounter for screening for malignant neoplasm of colon (principal); D12.6 Benign neoplasm of colon, unspecified; K57.30 Diverticulosis of large intestine without perforation or abscess without bleeding; Z95.5 Presence of coronary angioplasty implant and graft; Z88.1 Allergy status to other antibiotic agents; Z88.8 Allergy status to other drugs, medicaments and biological substances; Z79.82 Long term (current) use of aspirin; Z79.51 Long term (current) use of inhaled steroids; Z79.899 Other long term (current) drug therapy; J44.9 Chronic obstructive pulmonary disease, unspecified; F17.290 Nicotine dependence, other tobacco product, uncomplicated